=== PATIENT | female | born 1945 | race Caucasian/White ===

== ENCOUNTER 2017-04-18 09:50 | Emergency (ER) | payer MEDICARE ==
[2017-04-18 10:03] VITALS: BP 147/70
--- NOTE | 2017-04-18 10:53 | ER Document Report ---
HPI - HPI Pain Level: 4 Notes: Patient is a 71-year-old female with a history of hypertension, GERD, hyperlipidemia who presents the ED complaining of left leg pain from the hip down to the ankle x2 weeks. Pt states that she was in a car for 1 week traveling to this area. Pt states that the pain is "deep" and throbs on occasion. the pain is worsened with ambulation, sitting too long, standing too long patient states that she does have occasional back pain, but that primarily affected her right lower extremity in the past. She has not had any surgeries or procedures to her back recently. She has not had any surgeries to her lower extremities. She denies any history of DVT, PE, AK, CVA.. She denies any history of cancer or diabetes. She denies any smoking or illicit drug use. She denies any hormonal use. Patient states that she was seen at an urgent care the other day and had an x-ray done of her left leg with no significant findings. She was recommended to have an ultrasound performed which they were going to schedule, but patient decided to come to the ED as she was not sure when she was going to be able to get that scheduled. Patient is not currently on any fluid pills. She has not noticed any obvious redness, drainage, or abscess. She has not noticed any other swelling different from the other leg. Denies any headache, fever, neck pain, URI, sore throat, chest pain, palpitations, syncope, cough, shortness of breath, wheeze, dyspnea, abdominal pain, nausea/vomiting/diarrhea, urinary retention, dysuria, hematuria, hip pain , loss of control of bowel or bladder, numbness/tingling, saddle anesthesia, muscle paralysis/weakness, or rash. Patient denies any injury or trauma. - ROS Notes: REVIEW OF SYSTEMS: CONSTITUTIONAL : Denies fever, chills, or sweats. Denies recent illness. EENT: Denies eye, ear, throat, or mouth pain or symptoms. Denies nasal or sinus congestion or discharge. Denies throat, tongue, or mouth swelling or difficulty swallowing. CARDIOVASCULAR: Denies chest pain. Denies palpitations or racing or irregular heart beat. Denies ankle edema. RESPIRATORY: Denies cough, cold, or chest congestion. Denies shortness of breath, difficulty breathing, or wheezing. GASTROINTESTINAL: Denies abdominal pain or distention. Denies nausea, vomiting , or diarrhea. Denies blood in vomitus, stools, or per rectum. Denies black, tarry stools. Denies constipation. GENITOURINARY: Denies difficulty urinating, painful urination, burning, frequency, blood in urine, or discharge. MUSCULOSKELETAL: see hpi SKIN: Denies rash, lesions or sores. NEUROLOGICAL: Denies confusion or altered mental status. Denies passing out or loss of consciousness. Denies dizziness or lightheadedness. Denies headache. Denies weakness or paralysis or loss of use of either side. Denies problems with gait or speech. Denies sensory loss, numbness, or tingling. ALL OTHER SYSTEMS REVIEWED AND NEGATIVE. Dictation was performed using [employer] voice recognition software - CARDIOVASCULAR Cardiovascular: DENIES: Chest pain Past Medical History - Social History Smoking Status: Never Smoker Chew tobacco use (# tins/day): No Frequency of alcohol use: None Drug Abuse: None Family History: Reviewed & Not Pertinent - Past Medical History Cardiac Medical History: Reports: Hx Hypercholesterolemia, Hx Hypertension Renal/ Medical History: Denies: Hx Peritoneal Dialysis Surgical Hx: Negative - Immunizations Hx Diphtheria, Pertussis, Tetanus Vaccination: Yes Vertical Provider Document - CONSTITUTIONAL Agree With Documented VS: Yes Notes: PHYSICAL EXAMINATION: GENERAL: Well-appearing, well-nourished and in no acute distress. NECK: Normal range of motion, supple without lymphadenopathy LUNGS: Breath sounds clear to auscultation bilaterally and equal. No wheezes rales or rhonchi. HEART: Regular rate and rhythm without murmurs, rubs, gallops. ABDOMEN: Soft, nontender, nondistended abdomen. No guarding, no rebound. No masses appreciated. Normal bowel sounds present. No CVA tenderness bilaterally. No pulsatile mass. Musculoskeletal: Lt leg: FROM to passive/active. Strength 5+/5. No focal deficits noted. + 1+ pitting edema b/l. No warmth, erythema, or swelling. + calf tenderness. No bony tenderness of the LLE. Back: FROM to passive/active. Strength 5+/5. No step-offs. SLR negative b/ l. Non-tender. No SI jt tenderness or troch bursa tenderness b/l. Extremities: No cyanosis, clubbing, or edema b/l. Peripheral pulses 2+. Capillary refill less than 3 seconds. NEUROLOGICAL: Normal speech, normal gait. Normal sensory, motor exams PSYCH: Normal mood, normal affect. SKIN: Warm, Dry, normal turgor, no rashes or lesions noted. - INFECTION CONTROL TRAVEL OUTSIDE OF THE [place] IN LAST 30 DAYS: No - RESPIRATORY O2 Sat by Pulse Oximetry: 98 Course - Re-evaluation Re-evalutation: 04/18/17 11:39 Patient is an afebrile, well-hydrated, 71-year-old female who presents the ED with left leg pain. Vitals are stable. PE otherwise unremarkable for any focal neurological deficits. Left venous ultrasound was performed and did not find any DVT. Patient already had radiology imaging within the last 1-2 days at the urgent care which was negative. I have a suspicion that some of her pain can be attributed to her pitting edema as well as possibility of an etiology from her lower back. Low suspicion for any meningitis, fracture, expanding/ruptured AAA, cauda equina syndrome, epidural mass lesion/abscess, herniated disc causing severe spinal stenosis, or other systemic infection at this time. Patient is aware that her condition can change from initial presentation and that she needs monitor symptoms closely for any acute changes. 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 Establish with a PCM while you are here and consider being placed on a fluid pill. I will send her home with a prescription for naproxen. Decadron 10 mg given today. Consider consult with orthopedics/physical therapy. Return to the ED with any worsening/concerning symptoms otherwise as reviewed in discharge. Patient is in agreement. Formal read is pending, but tech states negative read. Reviewed with patient who understands risks/benefits of leaving. Pt agreed to return if needed for positive read.--I have a low suspicion at this time. - Vital Signs Vital signs: Temp Pulse Resp BP Pulse Ox 98.4 F 58 L 18 147/70 H 98 04/18/17 10:02 04/18/17 10:02 04/18/17 10:02 04/18/17 10:02 04/18/17 10:02 Discharge - Discharge Clinical Impression: Left leg pain Condition: Stable Disposition: HOME, SELF-CARE Instructions: Dependent Edema ([facility]), Ice Packs ([facility]), Leg Pain Nonspecific ([facility] ), Stretching Exercises for the Back ([facility]), Warm Packs ([facility]) Additional Instructions: Rest, Ice, Compression, Elevation May try compression stockings Tylenol/ibuprofen as needed Formal read on your US is pending and we will call you if positive. Light stretches daily Strength exercises as able Moist heat and massage may help F/u with your PCP in 2-3 days for a recheck and further management Consider consult(s) with Orthopedics/physical therapy for ongoing/worsening symptoms Return to the ED with any worsening symptoms and/or development of fever, headache, chest pain, palpitations, syncope, shortness of breath, trouble breathing, abdominal pain, n/v/d, blood in stool/urine, loss of control of bowel /bladder, urinary retention, muscle weakness/paralysis, saddle anesthesia, numbness/tingling, redness, swelling, abscess, or other worsening symptoms that are concerning to you. Prescriptions: Naproxen 500 mg PO BID PRN #30 tablet PRN Reason: Forms: Elevated Blood Pressure Referrals: [facility] [Provider Group] - Follow up as needed [facility] [Provider Group] - Follow up as needed [facility] [Provider Group] - Follow up as needed
[2017-04-18] MEDS ORDERED: DEXAMETHASONE SOD PHOS INJ 10 MG/1 ML VIAL IM ONE (11:41)
--- NOTE | 2017-04-18 16:16 | XCELERA REPORT ---
[address] [address] Lower Extremity Venous Evaluation Name: ALISHA HUBER Age: 71 yrs Gender: Female : 1945 Patient Status: Preadmit Patient Location: ER Study Date: 04/18/2017 11:02 AM Procedure: Color flow and duplex imaging of the veins of the left lower extremity as well as the right Common Femoral vein. Reason For Study: left leg pains, recent distance travel Ordering Physician: BACILIO SAGASTUME PA-C Performed By: Misti Berg Right Sided Venous Evaluation The right common femoral vein is fully compressible. Spontaneous and phasic flow is present in the right common femoral vein. Left Sided Venous Evaluation Normal vessel filling wall to wall, compression and augmentation as well as Colour flow down to the infrageniculate veins. Interpretation Summary No duplex evidence of DVT or obstruction in the left lower extremity nor in the right Common Femoral vein. : BACILIO SAGASTUME PA-C > Oseas Mccracken
== END 2017-04-18 12:00 | disposition home or self-care (01) ==
LOC: ER 09:50
DX: M79.605 Pain in left leg (principal); R60.9 Edema, unspecified; I10 Essential (primary) hypertension
CPT/HCPCS: 99283; 96372; 93971 ×2; J1100

== ENCOUNTER → 2017-05-29 | Outpatient (CLI) | payer MEDICARE ==
--- NOTE | 2017-05-29 20:22 | RADIOLOGY REPORT (SQ) ---
EXAM DESCRIPTION: MRI LUMBAR SPINE WITHOUT COMPLETED DATE/TIME: 05/29/2017 10:59 am REASON FOR STUDY: RADICULOPATHY, LUMBAR REGION M54.16 RADICULOPATHY, LUMBAR REGION COMPARISON: None. TECHNIQUE: Sagittal and Axial imaging includes T1, T2, STIR and gradient echo sequences. Coronal T2/ HASTE imaging. LIMITATIONS: None. FINDINGS: VISUALIZED UPPER ABDOMEN: Limited evaluation. No acute or suspicious findings suggested. SEGMENTATION: No transitional anatomy. The lowest well-developed disc space is labeled L5-S1. ALIGNMENT: Mild S-shaped scoliosis. VERTEBRAE: Intact. BONE MARROW: No marrow replacement. Reactive endplate signal change at multiple levels. DISC SIGNAL: Decreased height and signal throughout. Prominent anterior osteophytes. . POSTERIOR ELEMENTS: Generally intact. No pars defect evident. HARDWARE: None in the spine. CORD AND CONUS: Normal in size and signal intensity. Conus at the appropriate level. SOFT TISSUES: No aortic aneurysm seen. No bulky retroperitoneal adenopathy or mass. No paraspinal mas s or fluid. L1-L2: No significant disc bulge. Mild facet arthropathy. No significant spinal stenosis or exit fo raminal stenosis. L2-L3: No significant disc bulge. Mild -moderate facet arthropathy, worse on the left. No significa nt spinal stenosis or exit foraminal stenosis. L3-L4: Mild diffuse posterior annular bulge. Moderate facet arthropathy. Mild spinal stenosis and l eft exit foraminal stenosis. L4-L5: Mild diffuse posterior annular bulge. Mild facet arthropathy. No significant spinal stenosis or exit foraminal stenosis. L5-S1: No significant disc bulge. Marked facet arthropathy. No significant spinal stenosis or exit foraminal stenosis. LOWER THORACIC: Incompletely imaged. No stenosis seen. SACRUM: Visualized upper sacrum intact. OTHER: No other significant findings. IMPRESSION: MULTILEVEL CHRONIC DEGENERATIVE CHANGES DESCRIBED. NO HIGH-GRADE STENOSIS VISUALIZED . NO ACUTE FINDINGS. TECHNICAL DOCUMENTATION: JOB ID: [id number] [employer]- All Rights Reserved
== END ==
LOC: RAD 10:00
PROVIDERS: ATTEND Family Medicine
DX: M54.16 Radiculopathy, lumbar region (principal)
CPT/HCPCS: 72148

== ENCOUNTER 2019-04-12 01:07 | Emergency (ER) | payer MEDICARE ==
[2019-04-12 01:13] VITALS: BP 138/81
[2019-04-12] MEDS ORDERED: KETOROLAC TROMETHAMINE 60 MG/2 ML SDV IM ONE (01:34)
[2019-04-12] MEDS ORDERED: OXYCODONE HCL IR 5 MG TABLET PO ONE (01:34)
[2019-04-12] MEDS ORDERED: DEXAMETHASONE SOD PHOS INJ 10 MG/1 ML VIAL IM ONE (01:34)
--- NOTE | 2019-04-12 01:41 | ER Document Report ---
HPI - HPI Pain Level: 5 Notes: Patient is a 73-year-old female with a history of hypertension and chronic back pain who presents complaining of left lower back pain, left buttock pain, left lateral hip pain after being in a car ride for 11 hours recently. Patient states that she usually sits straight up and they were taking frequent breaks. Patient states that when she sits for any prolonged period and stands up she has stiffness and pain in her joints. Patient states that about 6 hours ago she started having pain that went from her left back into her left lateral thigh and has been present since then not allowing her to sleep very well. She does not take any pain medicines daily. Pt states that she usually has symptoms down her right leg but this time it is her left. No history of diabetes, chronic kidney disease, IV drug abuse, spinal abscess. Denies any headache, fever, neck pain, URI, sore throat, chest pain, palpitations, syncope, cough, shortness of breath, wheeze, dyspnea, abdominal pain, nausea/vomiting/diarrhea, urinary retention, dysuria, hematuria, loss of control of bowel or bladder, numbness/tingling, saddle anesthesia, muscle paralysis/weakness, or rash. She was in a long car ride but had frequent stops. Otherwise- denies any recent surgery/trauma, pe rsonal cancer history, hormone use, smoking, or previous DVT/PE. - ROS Systems Reviewed and Negative: Yes All other systems reviewed and negative Past Medical History - Social History Smoking Status: Never Smoker Family History: Reviewed & Not Pertinent - Past Medical History Cardiac Medical History: Reports: Hx Hypercholesterolemia, Hx Hypertension Renal/ Medical History: Denies: Hx Peritoneal Dialysis - Immunizations Hx Diphtheria, Pertussis, Tetanus Vaccination: Yes Vertical Provider Document - CONSTITUTIONAL Agree With Documented VS: Yes Notes: PHYSICAL EXAMINATION: GENERAL: Well-appearing, well-nourished and in no acute distress. Patient is very pleasant and answers questions appropriately. LUNGS: Breath sounds clear to auscultation bilaterally and equal. No wheezes rales or rhonchi. HEART: Regular rate and rhythm without murmurs, rubs, gallops. ABDOMEN: Soft, nontender, nondistended abdomen. No guarding, no rebound. Normal bowel sounds present. No CVA tenderness bilaterally. No pulsatile mass Musculoskeletal: LE's b/l: FROM to passive/active. Strength 5+/5. No deficits noted. No bony tenderness of extremities. Back: FROM to passive/active. Strength 5+/5. No vertebral point tenderness, stepoffs, or deformities. No other bony tenderness, erythema, swelling, or ecchymosis. SLR negative b/l. + tenderness to the L-paraspinal mm left side. Mild spasming. + left SI jt tenderness. No foot drop Extremities: Trace pitting b/l LE's. Peripheral pulses 2+. Capillary refill less than 2 seconds. No LE asymmetry. [place] neg b/l. NEUROLOGICAL: Normal speech, limping gait. Normal sensory, motor exams. Reflexes 2+ b/l. PSYCH: Normal mood, normal affect. SKIN: Warm, Dry, normal turgor, no rashes or lesions noted. - INFECTION CONTROL TRAVEL OUTSIDE OF THE [place] IN LAST 30 DAYS: No Course - Re-evaluation Re-evalutation: 04/12/19 01:45 Patient is an afebrile, well-hydrated, 73 year-old female who presents to the ED with acute on chronic low back pain and left sacroiilitis all reproducible by exam and correlate with pt complaint. Vitals are acceptable. PE is otherwise unremarkable for any focal neurological deficits. Patient was given Decadron, Toradol. She has no significant tachycardia, tachypnea, or hypoxia. She is nontoxic-appearing and is tolerating p.o. without difficulties. There are no signs of infection. No other red flag symptoms noted. No other labs or imaging warranted at this time based on H&P. Low suspicion for any meningitis, fracture, expanding/ruptured AAA, cauda equina syndrome, epidural mass lesion/abscess, herniated disc causing severe spinal stenosis, or other systemic infection at this time. Pt's symptomatology and presentation does not correlate well with DVT. Patient is aware that this condition can change from initial presentation and that she needs monitor symptoms closely for any acute changes. I will send her home with a prescription for robaxin, a few tabs of tramadol, and naproxen. Pt will be driving in several more hours to go to [place] for her 's stage 4 CA appointment. Pt aware not to take the meds aside from naproxen when/if driving. Conservative measures otherwise for symptoms. Recheck with your PCM in 3-5 days. Consider consult with orthopedic/physical therapy. Return to the ED with any worsening/concerning symptoms otherwise as r eviewed discharge. Patient is in agreement. - Vital Signs Vital signs: Temp Pulse Resp BP Pulse Ox 98.7 F 71 21 H 138/81 H 95 04/12/19 01:12 04/12/19 01:12 04/12/19 01:12 04/12/19 01:12 04/12/19 01:12 Discharge - Discharge Clinical Impression: Sacroiliitis Left low back pain Qualifiers: Chronicity: acute Sciatica presence: with sciatica Sciatica laterality: scia fran of left side Qualified Code(s): M54.42 - Lumbago with sciatica, left side Condition: Stable Disposition: HOME, SELF-CARE Instructions: Low Back Pain ([facility]), Muscle Relaxers ([facility]), Oral Narcotic Medication ([facility]) Additional Instructions: Rest, Ice Tylenol/ibuprofen as needed Light stretches daily Strength exercises as able Moist heat and massage may help F/u with your PCP in 3-5 days for a recheck Consider consult(s) with Orthopedics/physical therapy for ongoing/worsening symptoms Return to the ED with any worsening symptoms and/or development of fever, headache, chest pain, palpitations, syncope, shortness of breath, trouble breathing, abdominal pain, n/v/d, blood in stool/urine, loss of control of bowel/bladder, urinary retention, muscle weakness/paralysis, saddle anesthesia, numbness/tingling, or other worsening symptoms that are concerning to you. Prescriptions: Tramadol HCl [Ultram 50 mg Tablet] 50 mg PO Q4HP PRN #15 tab PRN Reason: Naproxen 500 mg PO BID #14 tablet Methocarbamol [Robaxin 750 mg Tablet] 750 mg PO TID PRN #5 tablet PRN Reason: Forms: Elevated Blood Pressure Referrals: DOUG PÉREZ MD [Primary Care Provider] - Follow up as needed [facility] [Provider Group] - Follow up as needed
== END 2019-04-12 02:05 | disposition home or self-care (01) ==
LOC: ER 01:07
DX: M46.1 Sacroiliitis, not elsewhere classified (principal); M54.42 Lumbago with sciatica, left side; I10 Essential (primary) hypertension; E78.00 Pure hypercholesterolemia, unspecified
CPT/HCPCS: J1885; J1100; A9270